=== PATIENT | female | born 1960 ===

== ENCOUNTER 2017-02-12 20:09 | Emergency (ER) | payer MEDICAID ==
[2017-02-12 20:26] VITALS: BP 124/70; PULSE 71; RESP 16; TEMP 97.9; O2SAT 98
--- NOTE | 2017-02-12 21:22 | ED PDOC ---
HPI: Headache Time Seen by Provider: 02/12/17 20:27 Chief Complaint (Nursing): Headache Chief Complaint (Provider): Headache History Per: Patient History/Exam Limitations: no limitations Onset/Duration Of Symptoms: Days (x3 weeks) Current Symptoms Are (Timing): Still Present Additional Complaint(s): Belia Garcia is a 57 year old female with previous medical history of hypercholesterolemia and gastritis, who presents to the emergency department for an evaluation of intermittent occipital headache associated with blurry vision ongoing for 3 weeks. Denied pain waking her up at night. Patient stated she usually takes Motrin and Excedrin with temporarily relief of pain and requesting a CT scan. PMD: Yasmani Ballard MD Past Medical History Reviewed: Historical Data, Nursing Documentation, Vital Signs Vital Signs: Last Vital Signs Temp 97.9 F 02/12/17 20:22 Pulse 71 02/12/17 20:22 Resp 16 02/12/17 20:22 BP 124/70 02/12/17 20:22 Pulse Ox 98 02/12/17 20:22 - Medical History PMH: Gastritis, Hypercholesterolemia (prior history) Denies: Chronic Kidney Disease - Surgical History Surgical History: Cholecystectomy - Family History Family History: States: Unknown Family Hx - Home Medications Home Medications: Ambulatory Orders Medication Instructions Recorded Esomeprazole Magnesium [Nexium] 40 mg PO DAILY #20 ecc 03/22/14 Amoxicillin/Clavulanate Pota 1 tab PO BID #14 tab 08/23/14 [Augmentin 875 mg-125 mg] Fluticasone Propionate [Flonase] 1 spr JOHNNA BID #1 bottle 08/23/14 Ranitidine HCl [Zantac] 150 mg PO BID #10 tablet 12/05/15 Acetaminophen/Butalbital/Caf 1 tab PO Q4 #15 tab 02/12/17 [Fioricet] - Allergies Allergies/Adverse Reactions: Allergies Allergy/AdvReac Type Severity Reaction Status Date / Time No Known Allergies Allergy Verified 03/21/14 22:53 Review of Systems ROS Statement: Except As Marked, All Systems Reviewed And Found Negative Eyes: Positive for: Vision Change (blurry) Neurological: Positive for: Headache (occipital) Physical Exam - Reviewed Nursing Documentation Reviewed: Yes Vital Signs Reviewed: Yes - Physical Exam Appears: Positive for: Well, Non-toxic, No Acute Distress Head Exam: Positive for: ATRAUMATIC, NORMAL INSPECTION, NORMOCEPHALIC Eye Exam: Positive for: Normal appearance, EOMI, PERRL. Negative for: Nystagmus Cardiovascular/Chest: Positive for: Regular Rate, Rhythm. Negative for: Chest Non Tender Respiratory: Positive for: Normal Breath Sounds, Accessory Muscle Use. Negative for: Decreased Breath Sounds, Respiratory Distress Gastrointestinal/Abdominal: Positive for: Normal Exam, Bowel Sounds, Soft. Negative for: Tenderness Neurologic/Psych: Positive for: Alert, Oriented. Negative for: Motor/Sensory Deficits - ECG O2 Sat by Pulse Oximetry: 98 (RA) Pulse Ox Interpretation: Normal Medical Decision Making Medical Decision Making: Initial Impression: Headache Initial Plan: * CT head without contrast * Benadryl 25mg PO * Reglan 10mg PO * * CT: Negative * * Pt calm and happy after results dsicussed. neuro exam remains non focal, reports complete resolution of pain Scribe Attestation: Documented by Kathy Emery, acting as a scribe for Ashlee Freeman Provider Scribe Attestation: All medical record entries made by the Scribe were at my direction and personally dictated by me. I have reviewed the chart and agree that the record accurately reflects my personal performance of the history, physical exam, medical decision making, and the department course for this patient. I have also personally directed, reviewed, and agree with the discharge instructions and disposition. Disposition - Clinical Impression Clinical Impression: Migraine - Patient ED Disposition Is Patient to be Admitted: No - Disposition Disposition: Routine/Home Disposition Time: 20:26 Condition: STABLE Prescriptions: Acetaminophen/Butalbital/Caf [Fioricet] 1 tab PO Q4 #15 tab Instructions: Migraine Headache (ED) Forms: [employer] (Albanian)
--- NOTE | 2017-02-12 22:35 | CT ---
EXAM: CT Head Without Intravenous Contrast CLINICAL HISTORY: 57 years old, female; Pain; Headache; Headache not specified; Additional info: Headaches x 3 weeks TECHNIQUE: Axial computed tomography images of the head/brain without intravenous contrast. All CT scans at this facility use one or more dose reduction techniques, viz.: automated exposure control; ma/kV adjustment per patient size (including targeted exams where dose is matched to indication; i.e. head); or iterative reconstruction technique. Coronal and sagittal reformatted images were created and reviewed. COMPARISON: CT - HEAD^HEAD ROUTINE (ADULT) 06/27/2010 8:23:26 AM FINDINGS: Brain: No intracranial hemorrhage. No mass. No definite edema. Ventricles: No hydrocephalus. Bones/joints: No acute fracture. Soft tissues: Unremarkable. Sinuses: Complete opacification of frontal sinuses. Near complete opacification of ethmoid sinuses. Near complete opacification of visualized RIGHT maxillary sinus. Mild mucosal thickening of sphenoid sinuses. Focal mucosal thickening vs retention cyst of visualized LEFT maxillary sinus. Mastoid air cells: No mastoid effusion. Orbits: Unremarkable as visualized. IMPRESSION: 1. No acute intracranial abnormality. 2. Sinus disease.
== END 2017-02-12 23:07 | disposition home or self-care (01) ==
LOC: H.ER 20:09
DX: G43.909 Migraine, unspecified, not intractable, without status migrainosus (principal)

== ENCOUNTER 2018-05-12 04:52 | Emergency (ER) | payer MEDICAID ==
[2018-05-12 04:54] VITALS: BMI 28.7
[2018-05-12 04:55] VITALS: RESP 16
[2018-05-12] MEDS ORDERED: Sodium Chloride 0.9% 1,000 ML IV STA (05:17)
--- NOTE | 2018-05-12 05:28 | ED PDOC ---
HPI: General Adult Time Seen by Provider: 05/12/18 05:26 Chief Complaint (Nursing): Palpitations Chief Complaint (Provider): DIZZINESS History Per: Patient (58 Y/O FEMALE HERE WITH ROOM SPINNING THAT OCCURRED AFTER MOVING HEAD QUICKLY. HAS HAD URI SYMPTOMS BUT NO COUGH OR FEVER. PMD OFFICE CLOSED TODAY. HAS H/O VERTIGO) Past Medical History Reviewed: Historical Data, Nursing Documentation, Vital Signs Vital Signs: Last Vital Signs Temp 98.3 F 05/12/18 04:54 Pulse 100 H 05/12/18 04:54 Resp 16 05/12/18 04:54 BP 137/70 05/12/18 04:54 Pulse Ox 97 05/12/18 04:54 - Medical History PMH: Gastritis, Hypercholesterolemia (prior history) Denies: Chronic Kidney Disease - Surgical History Surgical History: Cholecystectomy - Family History Family History: States: Unknown Family Hx - Home Medications Home Medications: Ambulatory Orders Medication Instructions Recorded Esomeprazole Magnesium [Nexium] 40 mg PO DAILY #20 ecc 03/22/14 Amoxicillin/Clavulanate Pota 1 tab PO BID #14 tab 08/23/14 [Augmentin 875 mg-125 mg] Fluticasone Propionate [Flonase] 1 spr JOHNNA BID #1 bottle 08/23/14 Ranitidine HCl [Zantac] 150 mg PO BID #10 tablet 12/05/15 Acetaminophen/Butalbital/Caf 1 tab PO Q4 #15 tab 02/12/17 [Fioricet] Meclizine [Antivert] 1 - 2 tab PO Q6 PRN #24 tab 05/12/18 RX: Pseudoephedrine [Sudafed Tab] 60 mg PO Q6 PRN #24 tab 05/12/18 - Allergies Allergies/Adverse Reactions: Allergies Allergy/AdvReac Type Severity Reaction Status Date / Time No Known Allergies Allergy Verified 05/12/18 05:01 Review of Systems ROS Statement: Except As Marked, All Systems Reviewed And Found Negative Physical Exam - Reviewed Nursing Documentation Reviewed: Yes Vital Signs Reviewed: Yes - Physical Exam Appears: Positive for: Well, Non-toxic, No Acute Distress Head Exam: Positive for: ATRAUMATIC, NORMAL INSPECTION, NORMOCEPHALIC Skin: Positive for: Normal Color, Warm, DRY Eye Exam: Positive for: EOMI, Normal appearance, PERRL ENT: Positive for: TM Is/Are (LEFT TM WITH DECREASED CONE OF LIGHT). Negative for: Normal ENT Inspection Neck: Positive for: Normal, Painless ROM Cardiovascular/Chest: Positive for: Regular Rate, Rhythm Respiratory: Positive for: CNT, Normal Breath Sounds Gastrointestinal/Abdominal: Positive for: Normal Exam, Soft Back: Positive for: Normal Inspection Extremity: Positive for: Normal ROM Neurologic/Psych: Positive for: Alert, Oriented - Laboratory Results Result Diagrams: 05/12/18 05:50 05/12/18 05:50 - ECG ECG Rhythm: Positive for: Sinus Rhythm (nsr no ectopy no acute changes.) O2 Sat by Pulse Oximetry: 97 Disposition - Clinical Impression Clinical Impression: Dizziness - Patient ED Disposition Is Patient to be Admitted: Transfer of Care - Disposition Disposition: Transfer of Care Disposition Time: 06:00 Condition: IMPROVED Additional Instructions: follow up with your primary doctor dr garcia in 1-2 days return to the ED with an worsening or concerning symptoms Prescriptions: Meclizine [Antivert] 1 - 2 tab PO Q6 PRN #24 tab PRN Reason: Dizziness RX: Pseudoephedrine [Sudafed Tab] 60 mg PO Q6 PRN #24 tab PRN Reason: Nasal Congestion Instructions: Vertigo (a Type of Dizziness) (DC) Forms: [employer] (Monegasque) Print Language: MARSHALLESE
[2018-05-12 06:06] LABS: BASO # 0.1 K/uL (0.0-0.2); EOS # 0.4 K/uL (0.0-0.7); EOS % 4.3 % (0.0-4.0); HEMOGLOBIN 13.9 g/dL (12.0-16.0); LYMPH # 1.4 K/uL (1.0-4.3); LYMPH % 16.4 % (20.0-40.0); MEAN CELL VOLUME 90.6 fl (81.0-99.0); MEAN CORPUSCULAR HEMOGLOBIN 31.3 pg (27.0-31.0); MEAN CORPUSCULAR HGB CONC 34.5 g/dL (33.0-37.0); MEAN PLATELET VOLUME 8.2 fl (7.2-11.7); MONO # 0.6 K/uL (0.0-0.8); MONO % 6.6 % (0.0-10.0); NEUT # 6.1 K/uL (1.8-7.0); NEUT % 71.7 % (50.0-75.0); RBC 4.43 Mil/uL (3.80-5.20); RED CELL DISTRIBUTION WIDTH 12.8 % (11.5-14.5); WHITE BLOOD COUNT 8.5 K/uL (4.8-10.8)
[2018-05-12 06:16] LABS: ALB/GLOB RATIO 1.2 (1.0-2.1); ALBUMIN 4.2 g/dL (3.5-5.0); ALT/SGPT 30 U/L (9-52); AST/SGOT 38 U/L (14-36); BLOOD UREA NITROGEN 13 mg/dl (7-17); CALCIUM 9.3 mg/dL (8.4-10.2); GFR NON-AFRICAN AMERICAN > 60
--- NOTE | 2018-05-12 06:20 | ED PDOC ---
- Laboratory Results Result Diagrams: 05/12/18 05:50 05/12/18 05:50 - ECG O2 Sat by Pulse Oximetry: 97 (RA) Pulse Ox Interpretation: Normal Medical Decision Making Medical Decision Making: Time: 06:00 Patient care endorsed from Setu Parada to provider pending labs and reevaluation 06:52 Patient reports feeling better. States she has had vertigo before and this felt similar . Patient will follow up with her PMD, Dr. Ballard. Patient condition is improved and can be discharged home. Diagnosis is dizziness. Scribe Attestation: Documented by Osmany Venegas, acting as a scribe for Antwan Ayala MD. Provider Scribe Attestation: All medical record entries made by the Scribe were at my direction and personally dictated by me. I have reviewed the chart and agree that the record accurately reflects my personal performance of the history, physical exam, medical decision making, and the department course for this patient. I have also personally directed, reviewed, and agree with the discharge instructions and disposition. Disposition - Clinical Impression Clinical Impression: Dizziness - POA Present On Arrival: None - Disposition Disposition: Routine/Home Disposition Time: 06:52 Condition: IMPROVED Additional Instructions: follow up with your primary doctor dr ballard in 1-2 days return to the ED with an worsening or concerning symptoms Prescriptions: Meclizine [Antivert] 1 - 2 tab PO Q6 PRN #24 tab PRN Reason: Dizziness RX: Pseudoephedrine [Sudafed Tab] 60 mg PO Q6 PRN #24 tab PRN Reason: Nasal Congestion Instructions: Vertigo (a Type of Dizziness) (DC) Forms: [employer] (Upper Sorbian) Print Language: LATVIAN
[2018-05-12 07:28] VITALS: BP 123/73; PULSE 81; TEMP 98
--- NOTE | 2018-05-12 13:25 | CARD ---
APPROVED REPORT Date of service: 05/12/2018 EKG Measurement Heart [id number] <Conclusion> Normal sinus rhythm Normal ECG
[2018-05-13 03:50] VITALS: O2SAT 97
== END 2018-05-12 07:25 | disposition home or self-care (01) ==
LOC: H.ER 04:52
DX: R42 Dizziness and giddiness (principal)
CPT/HCPCS: 80053; 82948; 83735; 84443; 85025; 93005; 96361; 96374; 99283; J2765; J7030